=== PATIENT | male | born 1955 | race Caucasian/White ===

== ENCOUNTER 2023-05-10 08:16 | Day surgery (SDC) | payer BC ==
[2023-05-07 11:20] VITALS: BMI 27.4
[2023-05-10 08:30] VITALS: RESP 18
[2023-05-10 09:06] VITALS: TEMP 97.3
[2023-05-10 09:26] VITALS: BP 112/64; PULSE 64
== END 2023-05-10 09:26 | disposition home or self-care (01) ==
LOC: FASU-ENDO 08:16
PROVIDERS: ATTEND Internal Medicine Gastroenterology
PROC: 0DBM8ZX Excision of Descending Colon, Via Natural or Artificial Opening Endoscopic, Diagnostic (ICD-10-PCS; principal; 2023-05-10 08:45)
DX: Z12.11 Encounter for screening for malignant neoplasm of colon (principal); D12.4 Benign neoplasm of descending colon; K57.30 Diverticulosis of large intestine without perforation or abscess without bleeding
CPT/HCPCS: 88305-TC